=== PATIENT | male | born 1995 | race Two or more races ===

== ENCOUNTER 2023-10-22 08:40 | Emergency (ER) | payer OTHER ==
[~2023-10-22] VITALS: Ht 180.3 cm; Wt 72.6 kg
[2023-10-22] MEDS ORDERED: TETANUS & DIPHTHERIA TOX,ADULT 0.5 ML VIAL IM STA (10:21)
[2023-10-22] MEDS ORDERED: TETANUS DIPHTHERIA TOX. ADSOR 5 ML VIAL IM ONE (10:26)
== END 2023-10-22 10:32 | disposition home or self-care (01) ==
LOC: ER 08:42
DX: S61.411A Laceration without foreign body of right hand, initial encounter (principal); X58.XXXA Exposure to other specified factors, initial encounter; Y93.89 Activity, other specified; Y92.89 Other specified places as the place of occurrence of the external cause; Y99.8 Other external cause status